=== PATIENT | female | born 1965 | race Caucasian/White ===

== ENCOUNTER 2022-03-05 06:51 | Day surgery (SDC) | payer BC ==
[2022-03-01 12:53] LABS: Absolute Lymphocytes (CBC) 1.6 K/uL (0.7-4.9); Hematocrit 42.6 % (36.0-45.0); Lymphocytes % 20.7 % (15.3-44.8); MPV 8.1 fL (7.6-11.3); RBC Red Blood Cell Count 4.91 M/uL (3.86-4.86)
[2022-03-01 13:09] LABS: Albumin 3.5 g/dL (3.4-5.0); Bilirubin Direct 0.1 mg/dL (0-0.2); Bilirubin Total 0.4 mg/dL (0.2-1.0); Potassium 4.3 mmol/L (3.5-5.1); Protein, Total 7.5 g/dL (6.4-8.2)
--- NOTE | 2022-03-01 13:12 | RAD REPORT ---
EXAM DESCRIPTION: Niurka Arita (2 Views)03/01/2022 12:53 pm CLINICAL HISTORY: Preop for gallbladder surgery COMPARISON: 2019 FINDINGS: Chronic elevation of left hemidiaphragm. Mild chronic changes left lung base. The lungs appear clear of acute infiltrate. The heart is normal size IMPRESSION: No acute abnormalities displayed
--- NOTE | 2022-03-01 13:44 | EKG ---
Test Date: 2022-03-01 Test Time: 12:17:44 Almond Sorter: DELANEY MEASUREMENT RESULTS: Intervals: Rate: 54 CT: 164 QRSD: 86 QT: 424 QTc: 402 [place]: P: 73 CT: 164 QRS: 28 T: 62 INTERPRETIVE STATEMENTS: Sinus bradycardia Otherwise normal ECG Compared to ECG 08/19/2013 17:51:33 Sinus rhythm no longer present Electronically Signed On 03-01-22 13:44:20 CDT by Rodo Espitia
[2022-03-05] MEDS ORDERED: Ringers Lactate 1,000 ML IV ONE (07:13)
[2022-03-05] MEDS ORDERED: SCOPOLAMINE HYDROBROMIDE PATCH TD ONE (08:10)
[2022-03-05] MEDS ORDERED: CELECOXIB 100 MG CAPSULE ONE (08:10)
[2022-03-05] MEDS ORDERED: ACETAMINOPHEN 500 MG TAB ONE (08:10)
[2022-03-05] MEDS ORDERED: CIPROFLOXACIN 400mg IV 400 MG/200 ML BAG IV ONE (08:20)
[2022-03-05] MEDS ORDERED: ROCURONIUM 50 MG/5 ML VIAL IV ONE (08:29)
[2022-03-05] MEDS ORDERED: LIDOCAINE 1% MPF 5 ML VIAL ONE (08:29)
[2022-03-05] MEDS ORDERED: MIDAZOLAM HCL 2 MG/2 ML INJ ONE (08:29)
[2022-03-05] MEDS ORDERED: FENTANYL CITR 100 MCG/2 ML ONE (08:29)
[2022-03-05] MEDS ORDERED: propofoL 200 MG/20 ML VIAL IV ONE (08:29)
[2022-03-05] MEDS ORDERED: dexAMETHasone 10 MG/ML VIAL ONE (08:43)
[2022-03-05] MEDS ORDERED: KETOROLAC 30 MG/ML INJ ONE (08:44)
[2022-03-05] MEDS ORDERED: GLYCOPYRROLATE 0.2 MG/ML SYR ONE (09:03)
[2022-03-05] MEDS ORDERED: ONDANSETRON 4 MG/2 ML VIAL ONE (09:03)
--- NOTE | 2022-03-05 09:04 | P.BOP ---
Preoperative diagnosis: Symptomatic cholelithiasis, acute cholecystitis, incarcerated umbilical her Postoperative diagnosis: same Primary procedure: 1. Laparoscopic cholecystectomy Secondary procedure: 2. Open umbilical hernia repair [employer]cel Contractor: RUI ASCENCIO (PROOFER) Estimated blood loss: <10cc Specimen: gb, hernia sac Anesthesia: General Complications: None Transferred to: Recovery Room Condition: Good
[2022-03-05] MEDS ORDERED: NEOSTIGMINE 1 MG/ML -10 ML VIAL ONE (09:06)
[2022-03-05] MEDS ORDERED: Mastisol Adhesive Liq ONE (09:06)
[2022-03-05] MEDS ORDERED: CODEINE 30MG/APAP 300MG TAB PO ONE (09:49)
[2022-03-05 10:36] VITALS: BP 105/93; TEMP 96.6; O2SAT 100
--- NOTE | 2022-03-05 14:56 | OP ---
Date of Procedure: 03/05/2022 Surgeon: Girish Garcia MD Buncher Hand: Christine Garcia. Preoperative Diagnoses: Symptomatic cholelithiasis, acute cholecystitis. Postoperative Diagnoses: Symptomatic cholelithiasis, acute cholecystitis. Procedures: Laparoscopic cholecystectomy, open umbilical hernia repair. Estimated Blood Loss: Less than 10 mL. Specimen: Gallbladder, hernia sac. Anesthesia: General plus local. Indication: This is the case of a lady, who comes to us with 2 problems, symptomatic cholelithiasis, but also an incarcerated umbilical hernia. The benefits, alternatives, and risks of laparoscopic po ssible open cholecystectomy and hernia repair were fully explained, which include, but not limited to infection, bleeding, damage to adjacent structures, anesthesia complication, recurrence of the herni a, [place], and even . She also understands this may not relieve any symptoms. She might need more than one surgical intervention. She understood, signed a consent. She also understands the importan ce of no heavy lifting and losing some weight to diminish the chance of recurrence of the hernia. Procedure In Detail: The patient was brought to the operating room, placed in supine position. Anes thesia was done without complication. Abdominal area was prepped and draped in the usual sterile fas hion. Local anesthesia was applied followed by a curvilinear incision in the infraumbilical region. Incision was carried down to fascia. We opened the hernia sac, noticed incarcerated omentum. Some of the omentum was reduced back into the abdominal cavity after fully inspection and making sure this is not bleeding and is viable. Hernia sac was removed. Fascial edges were cleaned. We placed Vicr yl #1 inside the fascia. Alexey trocar was carefully introduced. Pneumoperitoneum was obtained. I placed 3 more trocar under direct visualization in the right upper quadrant, 5 mm each one of them. This allowed me to put a grasper in the fundus of the gallbladder, another grasper in the infundibulu m, retracting the gallbladder in the inferolateral fashion, exposing the triangle of Calot and obtain ing critical view. Cystic duct and cystic artery were clearly isolated, freed circumferentially and a connection between those and the gallbladder were clearly identified. I proceeded to ligate the cy stic duct with 3 clips proximal, 1 clip distal, ligation in middle and the cystic artery with 2 clips proximal, 1 clip distal, ligation in middle. No bile leak, no bleeding. The gallbladder was remove d from the liver using Bovie cauterizer and removed from abdominal cavity using an EndoCatch through the umbilical incision. The area was inspected once again. No bile leak, no bleeding. At that mome nt, I proceeded to remove the trocars under direct vision. Deflated pneumoperitoneum. Closed the um bilical area and umbilical hernia with #1 Vicryl. Irrigated subcutaneous tissue, closed that with 3- 0 chromic and skin in a subcuticular fashion with 3-0 chromic and Steri-Strips on top. Sponge count and instrument counts correct. The patient tolerated the procedure well. The patient was sent to re covery in stable condition. MARCO/PAUL Voice ID: [id number] Report ID: [id number]
--- NOTE | 2022-03-05 14:56 | DS ---
Date of Discharge: 03/05/2022 Diagnoses: Symptomatic cholelithiasis, acute cholecystitis plus umbilical hernia. Procedures: 1.Laparoscopic cholecystectomy. 2.Open umbilical hernia repair. Disposition: Home. Activity: As tolerated as tolerated. No heavy lifting. Plan: Follow up in my office in 1 week. Call for appointment at [phone]. Keep area dry for 48 jana rs, then may shower. Keep Steri-Strips intact. MARCO/PAUL Voice ID: [id number] Report ID: [id number]
== END 2022-03-05 10:41 | disposition home or self-care (01) ==
LOC: OR 06:51
PROVIDERS: ATTEND Surgery
PROC: 0FT44ZZ Resection of Gallbladder, Percutaneous Endoscopic Approach (ICD-10-PCS; principal; 2022-03-05 08:30)
PROC: 0WQF0ZZ Repair Abdominal Wall, Open Approach (ICD-10-PCS; 2022-03-05 08:30)
DX: K80.10 Calculus of gallbladder with chronic cholecystitis without obstruction (principal); K42.9 Umbilical hernia without obstruction or gangrene; R10.11 Right upper quadrant pain; R10.13 Epigastric pain; I10 Essential (primary) hypertension; F41.9 Anxiety disorder, unspecified; K21.9 Gastro-esophageal reflux disease without esophagitis; Z20.822 Contact with and (suspected) exposure to COVID-19
CPT/HCPCS: 93005; 85025; 80048; 36415; 82150; 80076; 88302; 88304; 83690; 71046; 47562; 49585; U0003; J2704; J2710; J2250; J3010; J1100; J7120; J2405; J0744